=== PATIENT | female | born 1935 | race Caucasian/White ===

== ENCOUNTER 2016-02-29 11:53 | Inpatient (IN) | payer MEDICARE, MEDICAID ==
[2016-02-29] MEDS ORDERED: Albuterol Nebulizer 2.5mg/3mL HHN ONE ×3 (12:21→15:25)
[2016-02-29] MEDS ORDERED: cefTRIAXone 1 GM in Sodium Chloride 0.9% 50 ML IV ONE (12:23)
[2016-02-29] MEDS ORDERED: Azithromycin 250 MG in Sodium Chloride 0.9% 250 ML IV ONE (12:24)
[2016-02-29 13:01] LABS: ABG SOURCE Arterial; BE(B) 2.5 mmol/L (-3.0-3.0); FIO2 21; HCO3 26.3 mmol/L (20.0-26.0); pH 7.46 (7.35-7.45)
[2016-02-29 13:02] LABS: CRITICAL VALUES REPORTED BY SH
[2016-02-29 13:03] LABS: MEAN CELL VOLUME 94.2 fl (81-100); MEAN CORPUSCULAR HEMOGLOBIN 32.3 pg (27.0-31.0); MEAN CORPUSCULAR HGB CONC 34.2 pg (28.0-36.0); MEAN PLATELET VOLUME 8.1 fl; PLATELET COUNT 121 Th/cmm (150-400); RED BLOOD COUNT 3.95 Mil/cmm (3.80-5.20); RED CELL DISTRIBUTION WIDTH 14.7 % (11.5-20.0); WHITE BLOOD COUNT 6.3 Th/cmm (4.8-10.8)
[2016-02-29 13:07] LABS: HEMOGLOBIN 12.7 gm/dL (11.7-16.1)
[2016-02-29 13:08] LABS: HEMATOCRIT 37.2 % (35.0-45.0)
[2016-02-29 13:11] LABS: URINE BILIRUBIN NEGATIVE (NEGATIVE); URINE BLOOD MODERATE (NEGATIVE); URINE COLOR YELLOW; URINE GLUCOSE (UA) 500 mg/dL (NEGATIVE); URINE KETONE TRACE mg/dL (NEGATIVE); URINE PH 6.5; URINE PROTEIN >300 mg/dL (NEGATIVE)
[2016-02-29 13:12] LABS: URINE UROBILINOGEN 0.2 E.U./dL (0.2 - 1.0)
[2016-02-29 13:15] LABS: URINE BACTERIA OCCASIONAL /hpf (NONE SEEN); URINE CALCIUM OXALATE CRYSTALS FEW /hpf; URINE EPITHELIAL CELLS FEW /lpf (FEW); URINE WBC 0-2 /hpf (0-5)
[2016-02-29 13:15] LABS: INR 1.45 (0.5-1.4); PROTHROMBIN TIME (TEST) 14.8 SECONDS (9.5-11.5)
[2016-02-29 13:21] LABS: ALB/GLOB RATIO 0.8 (1.0-1.8); ALKALINE PHOSPHATASE 79 U/L (34-104); ANION GAP 11.5 (7.0-16.0); BILIRUBIN,TOTAL 0.5 mg/dL (0.3-1.0); BUN/CREATININE RATIO 67.9; CALCIUM SERUM 7.7 mg/dL (8.6-10.3); CARBON DIOXIDE 22.2 mEq/L (21.0-31.0); CHLORIDE 96 mEq/L (98-107); CHOLESTEROL 130 mg/dL (<200); CREATININE - SERUM 1.4 mg/dL (0.6-1.2); GLUCOSE 428 mg/dL (70-105); POTASSIUM SERUM 3.7 mEq/L (3.5-5.1); SGOT 80 U/L (13-39); SGPT/ALT 127 U/L (7-52); TRIGLYCERIDES 74 mg/dL (<150)
[2016-02-29 13:25] LABS: SODIUM SERUM 126 mEq/L (136-145)
[2016-02-29 13:26] LABS: BUN - UREA NITROGEN 95 mg/dL (7-25)
--- NOTE | 2016-02-29 13:36 | ED Physician Chart ---
Chief Complaint/HPI - Patient Information Date Seen:: 02/29/16 Time Seen:: 12:00 History of Present Illness:: THIS IS A 80 YO FEMALE BIB EMS FROM THE [facility] BECAUSE SHE HAS DIFFICULTY BREATHING AND IS VERY LETHARGIC. THE PATIENT ONLY RESPONDS TO DEEP PAIN STIMULUS AND IS A NO CODE THAT HAS DIFFICULTY BREATHING. SHE HAS A HISTORY OF DEMENTIA AND FAILURE TO THRIVE. Allergies:: Allergies Allergy/AdvReac Type Severity Reaction Status Date / Time No Known Allergies Allergy Verified 02/29/16 12:08 Vitals:: Vital Signs - 8 hr 02/29/16 02/29/16 11:53 12:48 Temp 101.4 F HR 101 109 RR 20 28 BP 121/53 O2 Sat % 98 95 Historian:: EMS, Medical Records Review:: Nurse's Note Reviewed, Transfer documents Reviewed, Patient unable to respond Review of Systems - Review of Systems General/Constitutional: Fever, No chills, No weight loss, No weakness, No diaphoresis, No edema, No loss of appetite Skin: No skin lesions, No rash, No bruising Head: No headache, No light-headedness Eyes: No loss of vision, No pain, No diplopia ENT: No earache, No nasal drainage, No sore throat, No tinnitus Neck: No neck pain, No swelling, No thyromegaly, No stiffness, No mass noted Cardio Vascular: No chest pain, No palpitations, No PND, No orthopnea, No edema Pulmonary: SOB, No cough, No sputum, No wheezing GI: No nausea, No vomiting, No diarrhea, No pain, No melena, No hematochezia, No constipation, No hematemesis G/U: No dysuria, No frequency, No hematuria Musculoskeletal: No bone or joint pain, No back pain, No muscle pain Endocrine: No polyuria, No polydipsia Psychiatric: No prior psych history, No depression, No anxiety, No suicidal ideation Hematopoietic: No bruising, No lymphadenopathy Allergic/Immuno: No urticaria, No angioedema Neurological: No syncope, No focal symptoms, No weakness, No paresthesia, No headache, No seizure, No dizziness, No confusion, No vertigo Past Medical History - Past Medical History Obtainable: Yes Past Medical History: HTN, DM, CAD, Asthma/COPD, CVA/TIA, Arthritis, Dementia Family History: None Social History: Non Smoker, No Alcohol, No Drug Use Surgical History: PEG/GTube Psychiatricy History: Dementia Medication: Reviewed Family Medical History - Family Member Mother History Unknown: Yes Physical Exam - Physical Examination General/Constitutional: No distress, GCS 15 Other Gen/Cons comments:: THIS IS A 80 YO WITH ONLY A RESPONSE TO DEEP PAIN STIMULUS. SHE IS CLEARLY WEAK AND DEHYDRATED. Head: Atraumatic Eyes: Lids, conjuctiva normal, PERRL, EOMI Skin: Nl inspection, No rash, No skin lesions, No ecchymosis, Well hydrated, No lymphadenopathy ENMT: External ears, nose nl, Nasal exam nl, Lips, teeth, gums nl Neck: Nontender, Full ROM w/o pain, No JVD, No nuchal rigidity, No bruit, No mass, No stridor Other Respiratory comments:: THIS PATIENT IS BREATHING WITH THE HELP OF 100% O2 AND AN AMBU BAG. BOTH LUNG HAVE DECREASE EXCURSION OF THE LUNGS. BOTH LUNGS ARE CONGESTED. Cardio Vascular: RRR (THE PATIENT IS TACHYCARDIC), No murmur, gallop, rubs, NL S1 S2 GI: No tenderness/rebounding/guarding, No organomegaly, No hernia, Normal BS's, Nondistended, No mass/bruits, No McBurney tenderness Other GI comments:: G-TUBE IS NOTED WITH GOOD FUNCTION : No CVA tenderness Extremities: No tenderness or effusion, Full ROM, normal strength in all extremities, No edema, Normal digits & nails Other Extremities comments:: ALL FOUR EXTREMITIES ARE CONTRACTED WITH SEVERE MUSCLE WASTING. Neuro/Psych: Alert/oriented, DTR's symmetric, Normal sensory exam, Normal motor strength, Judgement/insight normal, Mood normal, Normal gait, No focal deficits Other Neuro/Psych comments:: THERE IS GENERALIZE WEAKNESS Misc: normal gait, Normal back, No paraspinal tenderness Labs/Radiology/EKG Results - Lab Results Results: Laboratory Tests 02/29/16 02/29/16 02/29/16 00:50 00:50 00:50 WBC 6.3 RBC 3.95 Hgb 12.7 D Hct 37.2 D MCV 94.2 MCH 32.3 H MCHC Differential 34.2 RDW 14.7 Plt Count 121 L MPV 8.1 PT 14.8 H INR 1.45 H PTT (Actin FS) 33.6 Specimen Source Sample Site pH pCO2 pO2 HCO3 Base Excess O2 Saturation Viraj Test Vent Rate Inspired O2 Tidal Volume PEEP Pressure (ins/psv/peep) Critical Value Sodium Potassium Chloride Carbon Dioxide Anion Gap BUN Creatinine Est GFR ( Amer) Est GFR (Non-Af Amer) BUN/Creatinine Ratio Glucose Calcium Total Bilirubin AST ALT Alkaline Phosphatase Troponin I Total Protein Albumin Globulin Albumin/Globulin Ratio Triglycerides 74 Cholesterol 130 LDL Cholesterol Direct 76 HDL Cholesterol 48 Urine Source Urine Color Urine Clarity Urine pH Ur Specific Dora Urine Protein Urine Glucose (UA) Urine Ketones Urine Blood Urine Nitrate Urine Bilirubin Urine Urobilinogen Ur Leukocyte Esterase Urine RBC Urine WBC Ur Epithelial Cells Calcium Oxalate Crystal Urine Bacteria Urine Yeast 02/29/16 02/29/16 02/29/16 00:50 12: 12:25 WBC RBC Hgb Hct MCV MCH MCHC Differential RDW Plt Count MPV PT INR PTT (Actin FS) Specimen Source Arterial Sample Site RB pH 7.46 H pCO2 37.0 pO2 43.0 L* HCO3 26.3 H Base Excess 2.5 O2 Saturation 82.0 L Viraj Test NA Vent Rate NA Inspired O2 21 Tidal Volume NA PEEP NA Pressure (ins/psv/peep) NA Critical Value SH Sodium 126 L D Potassium 3.7 Chloride 96 L Carbon Dioxide 22.2 Anion Gap 11.5 BUN 95 H* Creatinine 1.4 H Est GFR ( Amer) TNP Est GFR (Non-Af Amer) TNP BUN/Creatinine Ratio 67.9 Glucose 428 H Calcium 7.7 L Total Bilirubin 0.5 AST 80 H ALT 127 H Alkaline Phosphatase 79 Troponin I Total Protein 6.3 Albumin 2.8 L Globulin 3.5 Albumin/Globulin Ratio 0.8 L Triglycerides Cholesterol LDL Cholesterol Direct HDL Cholesterol Urine Source CLEAN C Urine Color YELLOW Urine Clarity SL. CLOUDY Urine pH 6.5 Ur Specific [place] 1.020 Urine Protein >300 H Urine Glucose (UA) 500 H Urine Ketones TRACE Urine Blood MODERATE H Urine Nitrate NEGATIVE Urine Bilirubin NEGATIVE Urine Urobilinogen 0.2 Ur Leukocyte Esterase NEGATIVE Urine RBC 2-5 Urine WBC 0-2 Ur Epithelial Cells FEW Calcium Oxalate Crystal FEW Urine Bacteria OCCASIONAL Urine Yeast FEW H 02/29/16 12:50 WBC RBC Hgb Hct MCV MCH MCHC Differential RDW Plt Count MPV PT INR PTT (Actin FS) Specimen Source Sample Site pH pCO2 pO2 HCO3 Base Excess O2 Saturation Viraj Test Vent Rate Inspired O2 Tidal Volume PEEP Pressure (ins/psv/peep) Critical Value Sodium Potassium Chloride Carbon Dioxide Anion Gap BUN Creatinine Est GFR ( Amer) Est GFR (Non-Af Amer) BUN/Creatinine Ratio Glucose Calcium Total Bilirubin AST ALT Alkaline Phosphatase Troponin I 0.29 H* D Total Protein Albumin Globulin Albumin/Globulin Ratio Triglycerides Cholesterol LDL Cholesterol Direct HDL Cholesterol Urine Source Urine Color Urine Clarity Urine pH Ur Specific [place]ora Urine Protein Urine Glucose (UA) Urine Ketones Urine Blood Urine Nitrate Urine Bilirubin Urine Urobilinogen Ur Leukocyte Esterase Urine RBC Urine WBC Ur Epithelial Cells Calcium Oxalate Crystal Urine Bacteria Urine Yeast - Radiology Results Results: BILATERAL INFILTRATES NOTED ON CHEST X-RAY - EKG Interpretations EKG Time:: 12:53 Rhythm: ATIAL FIBRILLATION [place]: LEFT Rate: 100 ED Septic Shock - . Is Septic Shock (SBP<90, OR Lactate>4 mmol\L) present?: No - <6hrs of presentation: Vital Signs: Vital Signs - 8 hr 02/29/16 02/29/16 11:53 12:48 Temp 101.4 F HR 101 109 RR 20 28 BP 121/53 O2 Sat % 98 95 Reassessment (Disposition) - Reassessment Reassessment Condition:: Improved - Diagnosis Diagnosis:: PNEUMONIA SEVERE DEHYDRATION
[2016-02-29 13:40] LABS: BAND NEUTROPHILE 17 % (0-10); NEUTROPHILS 59 % (40-80); PLATELET ESTIMATE DECREASED PLATELETS (NORMAL); TOTAL CELLS COUNTED 100
[2016-02-29 13:41] LABS: PLATELET MORPHOLOGY NORMAL (NORMAL)
--- NOTE | 2016-02-29 15:23 | Diagnostic Imaging Report ---
Portable chest x-ray HISTORY: Shortness of breath Compared with the prior exam of 01/27/2016, the heart is enlarged. There is accentuation of the lower interstitial lung markings. A degree of congestive heart failure cannot be excluded. No pleural fluid. No hilar or mediastinal abnormalities. IMPRESSION: 1. Cardiomegaly along with accentuation of the lower interstitial lung markings. A mild degree of congestive heart failure cannot be excluded. No definite focal processes.
[2016-02-29] MEDS ORDERED: D5-0.9%NS 1,000 ML IV SCH (16:00)
[2016-02-29] MEDS ORDERED: Albuterol/Ipratropium Neb 3 ML AERS HHN PRN (16:47)
[2016-02-29] MEDS ORDERED: Hydrocodone/APAP 5mg/325mg Tab PO PRN (16:47)
[2016-02-29] MEDS ORDERED: Budesonide 0.5 Mg/2 mL Ud HHN PRN (16:47)
[2016-02-29] MEDS: Albuterol/Ipratropium Neb 3 ML AERS HHN SCH ×2 (20:26→23:24)
[2016-02-29] MEDS: Budesonide 0.5 Mg/2 mL Ud HHN SCH (20:26)
--- NOTE | 2016-02-29 23:17 | Admit Criteria Form ---
Admit Criteria Forms - Admit Criteria Diagnosis: PNEUMONIA, COMMUNITY ACQUIRED Clinical Indications for Admission to Inpatient Care ( Place 'X' for any and all applicable criteria): Admission is indicated for ANY ONE of the following (1)(2)(3): [ ]I. Hypoxemia indicated by ANY ONE of the following: [ ]a) Oxygen saturation less than 90% while breathing room air [ ]b) PO2 less than 60 mm Hg (8.0 kPa) while breathing room air [ ]c) Chronic lung disease with significant deterioration from baseline oxygenation [ ]II. Appropriate diagnostic testing and treatment unavailable in outpatient or recovery facility (eg,testing or infection control measures unavailable(10) [X ]III. Moderate-risk or high-risk category patients (Pneumonia Severity Index (PSI) class IV or V, or CURB-65 score of 3 or greater). [ ]IV. Outpatient treatment failure as indicated by ANY ONE of the following(9) : [ ]a) Failure to respond to antibiotic (eg, resistant organism) [ ]b) Clinically significant adverse effects from medication (eg, vomiting) [ ]c) Complications of pneumonia (eg, empyema, bacteremia) [ ]d) Significant worsening of comorbid cond necessitating inpatient care (eg, chronic heart failure) [ ]V. Intermediate-risk category patients (eg, PSI class III or CURB-65 score 2) who do not improve with initial therapy and observation. [ ]. Immunocompromised patients (eg, AIDS, chronic steroid use) at moderate or high risk based on clinical evaluation. [ ]VII. Complicated pleural effusions (eg, exudative, loculated) [ ]VIII.Hemodynamic instability [ ] IX. Altered mental status that is severe or persistent. [ ]X. Dehydration that is severe or persistent. [ ]XI. Bacteremia [ ]XII. Respiratory finding (eg. tachypnea) that do not respond to outpatient or observation care treatment Extended stay beyond goal length of stay may be needed for (20) [ ]a) Unclear diagnosis [ ]b) Pleural disease [ ]c) Severe pneumonia or treatment failure (25 [ ]d) Respiratory failure (anticipate invasive or noninvasive ventilatory support) [ ]e) Abnormal serum electrolytes (serum Na concentration less than 135 mEq/L (mmol/L) (32)(33) [ ]f) Clinically significant comorbid illness (eg, heart failure, atrial fibrillation with rapid heart rate, alcohol withdrawal, renal insufficiency)(34)(35) [ ]g) Comorbid acute exacerbation of COPD(36) [ ]h) Concomitant diagnosis of malignancy that may be associated with malnutrition, immunologic impairment, or bronchial obstruction. [ ]i) Concomitant altered mental status [ ]j) Culture-identified Gram-negative or antibiotic-resistant organism (eg, Pseudomonas, methicillin-resistant Staphylococcus aureus)(30) [ ]k) Healthcare-associated pneumonia The original [facility] content created by [email or web address] has been revised. The portions of the content which have been revised are identified through the use of italic text or in bold, and [facility] has neither reviewed nor approved the modified material. All other unmodified content is copyright [facility]. Please see references footnoted in the original [facility] [employer] edition 2016 Admit Criteria Met?: Yes
[2016-03-01] MEDS: Albuterol/Ipratropium Neb 3 ML AERS HHN SCH ×6 (03:09→23:14)
[2016-03-01] MEDS: carBAMazepine 200 mg/10 mL UDC GT SCH ×2 (04:54→17:40)
[2016-03-01 05:23] LABS: HEMATOCRIT 34.2 % (35.0-45.0); HEMOGLOBIN 11.8 gm/dL (11.7-16.1); MEAN CELL VOLUME 94.1 fl (81-100); MEAN CORPUSCULAR HEMOGLOBIN 32.5 pg (27.0-31.0); MEAN CORPUSCULAR HGB CONC 34.5 pg (28.0-36.0); MEAN PLATELET VOLUME 8.8 fl; RED BLOOD COUNT 3.64 Mil/cmm (3.80-5.20); RED CELL DISTRIBUTION WIDTH 15.3 % (11.5-20.0); WHITE BLOOD COUNT 7.3 Th/cmm (4.8-10.8)
[2016-03-01 05:29] LABS: ALB/GLOB RATIO 0.8 (1.0-1.8); ALKALINE PHOSPHATASE 68 U/L (34-104); ANION GAP 15.1 (7.0-16.0); BILIRUBIN,TOTAL 0.5 mg/dL (0.3-1.0); BUN/CREATININE RATIO 62.2; CALCIUM SERUM 7.3 mg/dL (8.6-10.3); CARBON DIOXIDE 22.2 mEq/L (21.0-31.0); CHLORIDE 93 mEq/L (98-107); CREATININE - SERUM 1.8 mg/dL (0.6-1.2); POTASSIUM SERUM 4.3 mEq/L (3.5-5.1); SGOT 77 U/L (13-39); SGPT/ALT 130 U/L (7-52); SODIUM SERUM 126 mEq/L (136-145)
[2016-03-01 05:41] LABS: BUN - UREA NITROGEN 112 mg/dL (7-25); GLUCOSE 663 mg/dL (70-105)
[2016-03-01] MEDS ORDERED: INSULIN ASPART, RECOMBINANT 100 UNITS/ML SUBQ ONE (06:54)
[2016-03-01] MEDS: Budesonide 0.5 Mg/2 mL Ud HHN SCH ×2 (07:49→20:09)
[2016-03-01 08:04] LABS: PLATELET COUNT 100 Th/cmm (150-400)
[2016-03-01 08:07] LABS: BAND NEUTROPHILE 25 % (0-10); METAMYELOCYTE 1 % (0-0); NEUTROPHILS 58 % (40-80); TOTAL CELLS COUNTED 100
[2016-03-01 08:08] LABS: PLATELET ESTIMATE DECREASED PLATELETS (NORMAL); PLATELET MORPHOLOGY GIANT PLATELETS SEEN (NORMAL)
[2016-03-01] MEDS ORDERED: Pantoprazole 40 mg/Packet GT SCH (09:00)
[2016-03-01] MEDS ORDERED: LANSOPRAZOLE 30 MG GT SCH (09:00)
[2016-03-01] MEDS ORDERED: Azithromycin 250 MG in Sodium Chloride 0.9% 250 ML IV SCH (10:00)
--- NOTE | 2016-03-01 10:18 | Infectious Disease Prog Note ---
Infectious Disease Subjective - Review of Systems Service Date: 03/01/16 Subjective: [id number] Infectious Disease Objective - Results Result Diagrams: 03/01/16 05:05 03/01/16 05:05 Recent Labs: Laboratory Last Values WBC 7.3 Th/cmm (4.8-10.8) 03/01/16 05:05 RBC 3.64 Mil/cmm (3.80-5.20) L 03/01/16 05:05 Hgb 11.8 gm/dL (11.7-16.1) 03/01/16 05:05 Hct 34.2 % (35.0-45.0) L 03/01/16 05:05 MCV 94.1 fl (81-100) 03/01/16 05:05 MCH 32.5 pg (27.0-31.0) H 03/01/16 05:05 MCHC Differential 34.5 pg (28.0-36.0) 03/01/16 05:05 RDW 15.3 % (11.5-20.0) 03/01/16 05:05 Plt Count 100 Th/cmm (150-400) L 03/01/16 05:05 MPV 8.8 fl 03/01/16 05:05 Band Neutrophils % 25 % (0-10) H 03/01/16 05:05 Neutrophils (Manual) 58 % (40-80) 03/01/16 05:05 Lymphocytes 9 % (20-50) L 03/01/16 05:05 Monocytes 7 % (2-10) 03/01/16 05:05 Eosinophils Not Reportable 03/01/16 05:05 Metamyelocytes 1 % (0-0) H 03/01/16 05:05 Platelet Estimate DECREASED PLATELETS (NORMAL) 03/01/16 05:05 Platelet Morphology GIANT PLATELETS SEEN (NORMAL) 03/01/16 05:05 RBC Morph Micro Appear NORMAL (NORMAL) 03/01/16 05:05 PT 14.8 SECONDS (9.5-11.5) H 02/29/16 00:50 INR 1.45 (0.5-1.4) H 02/29/16 00:50 PTT (Actin FS) 33.6 SECONDS (26.0-38.0) 02/29/16 00:50 Specimen Source Arterial 02/29/16 12:09 Sample Site RB 02/29/16 12:09 pH 7.46 (7.35-7.45) H 02/29/16 12:09 pCO2 37.0 mmHg (35.0-45.0) 02/29/16 12:09 pO2 43.0 mmHg (80.0-100.0) L* 02/29/16 12:09 HCO3 26.3 mmol/L (20.0-26.0) H 02/29/16 12:09 Base Excess 2.5 mmol/L (-3.0-3.0) 02/29/16 12:09 O2 Saturation 82.0 % (92.0-100.0) L 02/29/16 12:09 Viraj Test NA 02/29/16 12:09 Vent Rate NA 02/29/16 12:09 Inspired O2 21 02/29/16 12:09 Tidal Volume NA 02/29/16 12:09 PEEP NA 02/29/16 12:09 Pressure (ins/psv/peep) NA 02/29/16 12:09 Critical Value SH 02/29/16 12:09 Sodium 126 mEq/L (136-145) L 03/01/16 05:05 Potassium 4.3 mEq/L (3.5-5.1) 03/01/16 05:05 Chloride 93 mEq/L (98-107) L 03/01/16 05:05 Carbon Dioxide 22.2 mEq/L (21.0-31.0) 03/01/16 05:05 Anion Gap 15.1 (7.0-16.0) 03/01/16 05:05 BUN 112 mg/dL (7-25) H* 03/01/16 05:05 Creatinine 1.8 mg/dL (0.6-1.2) H 03/01/16 05:05 Est GFR ( Amer) TNP 03/01/16 05:05 Est GFR (Non-Af Amer) TNP 03/01/16 05:05 BUN/Creatinine Ratio 62.2 03/01/16 05:05 Glucose 663 mg/dL (70-105) H* 03/01/16 05:05 Hemoglobin A1c % 6.1 % (4.0-6.0) H 02/29/16 12:50 Calcium 7.3 mg/dL (8.6-10.3) L 03/01/16 05:05 Total Bilirubin 0.5 mg/dL (0.3-1.0) 03/01/16 05:05 AST 77 U/L (13-39) H 03/01/16 05:05 ALT 130 U/L (7-52) H 03/01/16 05:05 Alkaline Phosphatase 68 U/L (34-104) 03/01/16 05:05 Troponin I 0.29 ng/mL (0.01-0.05) H* D 02/29/16 12:50 Total Protein 6.3 gm/dL (6.0-8.3) 03/01/16 05:05 Albumin 2.7 gm/dL (3.7-5.3) L 03/01/16 05:05 Globulin 3.6 gm/dL 03/01/16 05:05 Albumin/Globulin Ratio 0.8 (1.0-1.8) L 03/01/16 05:05 Triglycerides 74 mg/dL (<150) 02/29/16 00:50 Cholesterol 130 mg/dL (<200) 02/29/16 00:50 LDL Cholesterol Direct 76 mg/dL (75-193) 02/29/16 00:50 HDL Cholesterol 48 mg/dL (23-92) 02/29/16 00:50 Urine Source CLEAN C 02/29/16 12:25 Urine Color YELLOW 02/29/16 12:25 Urine Clarity SL. CLOUDY (CLEAR) 02/29/16 12:25 Urine pH 6.5 02/29/16 12:25 Ur Specific [place] 1.020 (1.005-1.030) 02/29/16 12:25 Urine Protein >300 mg/dL (NEGATIVE) H 02/29/16 12:25 Urine Glucose (UA) 500 mg/dL (NEGATIVE) H 02/29/16 12:25 Urine Ketones TRACE mg/dL (NEGATIVE) 02/29/16 12:25 Urine Blood MODERATE (NEGATIVE) H 02/29/16 12:25 Urine Nitrate NEGATIVE (NEGATIVE) 02/29/16 12:25 Urine Bilirubin NEGATIVE (NEGATIVE) 02/29/16 12:25 Urine Urobilinogen 0.2 E.U./dL (0.2 - 1.0) 02/29/16 12:25 Ur Leukocyte Esterase NEGATIVE (NEGATIVE) 02/29/16 12:25 Urine RBC 2-5 /hpf (0-5) 02/29/16 12:25 Urine WBC 0-2 /hpf (0-5) 02/29/16 12:25 Ur Epithelial Cells FEW /lpf (FEW) 02/29/16 12:25 Calcium Oxalate Crystal FEW /hpf 02/29/16 12:25 Urine Bacteria OCCASIONAL /hpf (NONE SEEN) 02/29/16 12:25 Urine Yeast FEW /hpf (NONE SEEN) H 02/29/16 12:25 RPR NONREACTIVE (NONREACTIVE) 02/29/16 00:50 - Physical Exam Vitals and I&O: Vital Signs Temp 98.8 F 03/01/16 08:00 Pulse 96 03/01/16 08:00 Resp 20 03/01/16 08:00 BP 117/61 03/01/16 08:00 Pulse Ox 100 03/01/16 08:00 Intake & Output 02/29/16 03/01/16 03/01/16 18:59 06:59 18:59 Intake Total 200 Output Total 750 Balance -550 Intake: Oral 0 Tube Feeding 200 Output: Gastric Drainage 250 Urine 500 Active Medications: Current Medications Acetaminophen (Tylenol 650mg/20.3ml Suspension) 650 mg GT Q4H PRN PRN Reason: Pain Or Fever >100 Stop: 04/29/16 16:46 Last Admin: 03/01/16 03:26 Dose: 650 mg Acetaminophen/Hydrocodone Bitart ([place] 5mg/325mg) 1 tab PO Q4H PRN PRN Reason: moderate pain Stop: 04/29/16 16:46 Albuterol/Ipratropium (Duoneb Neb) 3 ml HHN Q4H PRN PRN Reason: Shortness of Breath Stop: 04/29/16 16:46 Albuterol/Ipratropium (Duoneb Neb) 3 ml HHN Q4HRT ARACELY Stop: 04/29/16 18:59 Last Admin: 03/01/16 07:49 Dose: 3 ml Budesonide (Pulmicort) 0.5 mg HHN Q12HRT ARACELY Stop: 04/29/16 18:59 Last Admin: 03/01/16 07:49 Dose: 0.5 mg Budesonide (Pulmicort) 0.5 mg HHN Q4H PRN PRN Reason: sob Stop: 04/29/16 16:46 Carbamazepine (Tegretol) 200 mg GT Q12H ARACELY PRN Reason: Protocol Stop: 04/29/16 16:59 Last Admin: 03/01/16 04:54 Dose: 200 mg Heparin Sodium (Porcine) (Heparin) 5,000 units SUBQ Q12HR ARACELY Stop: 04/29/16 20:59 Last Admin: 03/01/16 09:32 Dose: 5,000 units Potassium Chloride 10 meq/ (Sodium Chloride) 1,005 mls @ 50 mls/hr IV .Q20H6M ARACELY Stop: 04/30/16 08:14 Piperacillin Sod/Tazobactam (Sod 3.375 gm/ Sodium Chloride) 50 mls @ 100 mls/ hr IV Q6H ARACELY Stop: 04/30/16 08:59 Vancomycin HCl 1 gm/ Sodium (Chloride) 250 mls @ 165 mls/hr IV ONCE ONE Stop: 03/01/16 10:30 Insulin Aspart (Novolog Insulin Sliding Scale) 0 units SUBQ Q6HR ARACELY PRN Reason: Protocol Stop: 04/30/16 11:59 Miscellaneous (Vancomycin Iv Per Pharmacy) 1 ea PRN PRN PRN Reason: PROTOCOL Stop: 04/30/16 08:11 Miscellaneous (Zosyn Iv Per Pharmacy) 1 ea PRN PRN PRN Reason: PROTOCOL Stop: 04/30/16 08:11 Pantoprazole Sodium (Protonix) [address] [facility] Stop: 04/30/16 08:59 Last Admin: 03/01/16 09:32 Dose: 40 mg - Procedures Procedures: Procedures Procedure Code Date ASSISTANCE WITH RESPIRATORY VENTILATION, 24-96 HRS, CPAP [id number] 01/24/16 BLOOD TRANSFUSION SERVICE 05243 08/10/07 COLONOSCOPY 45.23 08/10/07 DIAGNOSTIC COLONOSCOPY 80054 08/10/07 EGD BIOPSY SINGLE/MULTIPLE 98698 08/10/[address] GASTROSTOMY TUBE 37200 06/29/15 ESOPHAGOGASTRODUODENOSCOPY [EGD] W/CLOSED BIOPSY 45.16 08/10/07 IMMOBILIZ/WOUND ATTN NEC 93.59 04/19/08 INSERTION OF FEEDING DEVICE INTO STOMACH, PERC APPROACH [id number] 06/29/15 INSERTION OF INFUSION DEV INTO SUP VENA CAVA, PERC APPROACH [id number] 12/11/15 PACKED CELL TRANSFUSION 99.04 03/25/14 STRAPPING OF SHOULDER 82059 04/19/08 ULTRASONOGRAPHY OF SUPERIOR VENA CAVA, GUIDANCE [id number] 12/11/15 VACCINATION NEC 99.55 03/20/13 VENOUS CATHETERIZATION NEC 38.93 03/25/14 Infectious Disease Assmt/Plan - Problem List Patient Problems: All Active Problems Generalized weakness (Acute) PIC line (peripherally inserted central catheter) removal (Acute) Z45.2 WEAKNESS WITH CONGESTION (Acute 01/09/15)
--- NOTE | 2016-03-01 10:33 | History & Physical ---
CHIEF COMPLAINT: Shortness of breath. HISTORY OF PRESENT ILLNESS: This is a 80-year-old female who [facility] ER for increased shortness of breath and [facility]arg[facility]. The patient has a previous history of pneumonia along with UTI. She also has a history of decubitus ulcers to both feet. She also has G-tube feeding, history of dementia, seizure disorder, gastroesophageal reflux disease, hyperlipidemia, and hypothyroidism. The patient presents to the ER with initial lab work. CBC: white count was 6.3, hemoglobin 12.7, hematocrit 37.2, platelets 121. Chem-7: Sodium was noted to be low at 126, potassium 3.7, chloride 96, bicarbonate 22, BUN elevated at 95, creatinine 1.4. Glucose was elevated at 428. Also liver enzymes are elevated, AST 80, ALT 127, alkaline phosphatase 79. UA revealed yellow cloudy urine with moderate blood and few yeast present in the urine. REVIEW OF SYSTEMS: Unable to obtain due to the patient's current condition. FAMILY HISTORY: Noncontributory. ALLERGIES: No known drug allergies. PAST MEDICAL HISTORY: See HPI. SOCIAL HISTORY: The [facility] a [facility] a [facility] facility. PHYSICAL EXAMINATION: VITAL SIGNS: Temperature 102.8, pulse 90, respirations 19, blood pressure 112/61. GENERAL: This is a 80-year-old female, well developed, well nourished, appears her stated age. HEENT: Normocephalic, atraumatic. Pupils equal, round, reactive to light and accommodation. Extraocular muscles intact. NECK: Supple. Full range of motion. No thyromegaly, no lymphadenopathy. CARDIOVASCULAR: Regular rate and rhythm, no murmurs, rubs or clicks. LUNGS: Decreased breath sounds noted at the bases. ABDOMEN: Soft, nontender, nondistended. Bowel sounds are active in all 4 quadrants. No rebound tenderness or rigidity. No guarding. EXTREMITIES: Bilateral ulcers noted. ASSESSMENT: 1. Pneumonia. 2. Sepsis. 3. Urinary tract infection. 4. Decubitus bilaterally to the lower extremities. 5. G-tube feeding. 6. Senile dementia. 7. Seizure disorder. 8. Gastroesophageal reflux disease. 9. Hyperlipidemia. 10. Hypothyroidism. PLAN: We will start the patient on vancomycin per Pharmacy and Zosyn per Pharmacy. We will order an ID consult with Dr. Nandini Richardson. We will order a chest x-ray in the next couple of days. Urine cultures, blood cultures ordered through the ER. We will also order Pulmonary consult with Dr. Addison Richardson and also we will continue home medications for this patient, Accu-Cheks q. 6 hours and on a moderate sliding scale. JOB# [id number]
[2016-03-01] MEDS ORDERED: INSULIN ASPART SLIDING SCALE 100 UNITS/ML UNIT SUBQ SCH (12:00)
[2016-03-01] MEDS ORDERED: Sodium Chloride 0.9% 1,000 ML IV ONE (17:10)
[2016-03-01] MEDS: INSULIN ASPART SLIDING SCALE 100 UNITS/ML UNIT SUBQ SCH (17:41)
[2016-03-01] MEDS ORDERED: Albuterol/Ipratropium Neb 3 ML AERS HHN SCH (19:00)
[2016-03-01] MEDS ORDERED: Budesonide 0.5 Mg/2 mL Ud HHN SCH (19:00)
[2016-03-01] MEDS ORDERED: SODIUM BICARBONATE HHN SCH (22:00)
--- NOTE | 2016-03-02 00:17 | Consultation ---
INFECTIOUS DISEASE CONSULTATION REFERRING PHYSICIAN: Dr. Soliz. REASON FOR CONSULTATION: Pneumonia. HISTORY OF PRESENT ILLNESS: The patient is a 80-year-old female with a past medical history of hypertension, diabetes mellitus type 2, coronary artery disease, asthma, COPD, CVA, TIA, and dementia, who was brought in from shelter for worsening of breathing and generalized weakness with lethargy. On initial evaluation, her temperature was 101.4 degrees Fahrenheit and WBC count was 6300 with 17% bands. Chest x-ray showed cardiomegaly with lower interstitial lung markings, CHF. The patient was suspected to have pneumonia, so the patient was started on vancomycin and Zosyn, and ID consult was called for further antibiotic management. PAST MEDICAL HISTORY: As mentioned above, diabetes mellitus type 2, hypertension, coronary artery disease, COPD, asthma, CHF, CVA, TIA, arthritis, and dementia. FAMILY HISTORY: Noncontributory. SOCIAL HISTORY: Denies any smoking. There is no history of smoking, alcohol, or drug use. PAST SURGICAL HISTORY: G-tube placement. PSYCHIATRIC HISTORY: Dementia. MEDICATIONS: As per medication reconciliation sheet. Antibiotic peters, the patient is on vancomycin and Zosyn. FAMILY HISTORY: Not available. REVIEW OF SYSTEMS: The patient is unable to give any history, but the patient had fever with shortness of breath. PHYSICAL EXAMINATION: VITAL SIGNS: Shows temperature is 98.8 degrees Fahrenheit, T-max is 102.8 degree Fahrenheit, pulse is 79, respiration is 20, and blood pressure 117/61. GENERAL: The patient is comfortable lying in the bed, not in acute distress. HEENT: Head is normocephalic and atraumatic. Oral cavity moist. [place] tongue. Eyes: Pallor is present. NECK: Supple. No JVD. No carotid bruit. Trachea in midline. CHEST: Bilateral bronchovesicular breath sounds. Crackles present. HEART: S1, S2 within normal limits. Regular rhythm. No murmur, no gallop. ABDOMEN: Soft, nontender, and nondistended. Bowel sounds present. EXTREMITIES: No cyanosis, no clubbing, and no edema. NEUROLOGIC: Able to open eyes only. Unable to interact. LABORATORY DATA: Current lab shows WBC count is 7300, hemoglobin 11.8, hematocrit 34.2, platelets are 100,000, and neutrophils 58%, bands are 25%. Sodium is 126, potassium 4.3, chloride 93, bicarb is 22, BUN is 112, creatinine 1.8, and glucose is 663. RPR nonreactive. IMPRESSION: 1. Sepsis. 2. Pneumonia. 3. Diabetes mellitus type 2. 4. Hypertension. 5. Coronary artery disease. 6. Chronic obstructive pulmonary disease. 7. Asthma. 8. Acute renal failure versus chronic kidney disease. 9. Dementia. 10. History of cerebrovascular accident. RECOMMENDATIONS: We will continue antibiotic vancomycin and Zosyn. Check lactic acid. Follow up the sepsis workup. Thank you Dr. Soliz for involving me taking care of this patient. JOB# [id number] [place]
[2016-03-02] MEDS: INSULIN ASPART SLIDING SCALE 100 UNITS/ML UNIT SUBQ SCH ×2 (00:48→05:37)
--- NOTE | 2016-03-02 02:59 | Consultation ---
PULMONARY CONSULTATION NOTE REASON FOR CONSULTATION: Acute bronchitis with possibly pneumonia. CONSULT NOTE: This is a 80-year-old female of Dr. Soliz who has been in a convalescent home with significant ___ condition including history of dementia, history of gastroesophageal reflux, history of hypothyroidism, history of seizure disorder, and the patient has been having acute on chronic shortness of breath for last few days. As the patient felt quite congested and shortness of breath and appears to have possibly more labile mental condition, the patient was admitted. Unfortunately, the patient is still quite obtunded. Meaningful detailed history from the patient is not available. PAST MEDICAL HISTORY: History of dysphagia, aphasia, history of hypertension, dyslipoproteinemia, hypothyroidism, dementia, but otherwise unremarkable and has been totally bedridden patient. Other history in the past is very limited at this particular time. FAMILY HISTORY: Not contributory. ALLERGIC HISTORY: Nil. PHYSICAL EXAMINATION: GENERAL: This is an elderly looking female, barely opens eyes, has stiffness on the right upper and lower extremities. Tongue is protruding on the left side. VITAL SIGNS: The patient's recorded vitals: Temperature is 98.8 to 100.6, respirations in low 20s, saturation 100% on 2 liters of oxygen. HEENT: Examination of the head is essentially unremarkable. Pupils appear to be equal and reacting to light. Conjunctivae are slightly pallor. Oral cavity appears to be edentulous with small oropharyngeal opening. NECK: No nodes in the neck could be palpated. CHEST: Shows lot of scattered rales and rhonchi bilaterally with generalized diminished air entry. HEART: Tachycardic mildly, 100-110. ABDOMEN: Shows G-tube, otherwise unremarkable. EXTREMITIES: Show contractures and flexion with some bony area decubitus ulceration. The patient's chest x-ray shows some interstitial infiltrate in right basal area, questionable on the left side as well. The patient's WBC is 7.3, hemoglobin is 11.8 and ABG done yesterday ____ room air pO2 is 43. Sodium is 126, BUN is 112, creatinine is 1.8 and sugar is ____ and calcium is 7.3. ASSESSMENT: 1. The patient has early pneumonitis on the right base with some on the left side. Etiology is not clear, possibility of gastric aspiration and/or salivary aspiration. 2. Dehydration with prerenal azotemia with severe hyperglycemia, contributory factor with dehydration contributory factor to current issues. PLANS AND SUGGESTIONS: We will continue antibiotic per ID. We will give aggressive respiratory care, hydrate the patient, and we will repeat another blood gases and chest x-ray in next 24-48 hours and go from there, and I will be glad to follow along with you. JOB# [id number]
[2016-03-02] MEDS: Albuterol/Ipratropium Neb 3 ML AERS HHN SCH ×2 (03:01→07:11)
--- NOTE | 2016-03-02 03:43 | Consultation ---
RENAL CONSULTATION NOTE HISTORY OF PRESENT ILLNESS: This is a 80-year-old female patient who was brought in from [facility] to [facility] with increasing shortness of breath and marked lethargy from the longterm. Prior to that, this patient had a previous history of pneumonia along with the urinary tract infection. She had also multiple areas of decubiti of both lower extremities with evidence of flexion contracture with severe degree and inactivity and bedridden, had a G-tube in place, history of dementia, seizure disorder, gastroesophageal reflux, hyperlipidemia, and past history of hypothyroidism. On ER evaluation, the patient was noted to have some degree of azotemia. BUN was more than 100, creatinine of 1.8. The patient's blood sugar is significantly elevated to level of 428, although the most recent blood sugars I noted today is 663. REVIEW OF SYSTEMS: Unobtainable for this patient. PHYSICAL EXAMINATION: GENERAL: She is unresponsive. She does not open her eyes to stimulation. She moans, but no evidence of response at the present time. She is nonverbal. She does not communicate. VITAL SIGNS: Temperature is 98.6, prior to this was 100.6. Blood pressure 97/52 with respiratory rate of 20. O2 sat is 95%. CHEST: Clear to auscultation. ABDOMEN: Shows presence of a G-tube. The entry of the G-tube is clear. No evidence of infection. There is no edema in the dependent portion of the body. EXTREMITIES: Flexion contracture of both lower extremities and decubitus ulceration is noted on both lower extremities. LAB STUDIES: Reviewed. 7300 white blood cell count, 11.8 hemoglobin, hematocrit of 34.3, platelet counts 100,000. Arterial blood gas, 7.46, pO2 of 37, and pCO2 of 48. This is at room air. Electrolytes: 126 sodium, potassium 4.3, chlorides 93, CO2 of 22, BUN of 112, creatinine of 1.8, glucose is 663 and prior to this was 423. Glucose determination of the 663 is 521. Lactic acid 3.1, calcium 7.3, AST 77, ALT 130, alkaline phosphatase 68, troponin is 0.29, total protein 6.3, albumin 2.7. Urinalysis; cloudy urine, 300 protein, moderate amounts of blood, occasional bacteria, negative for urine leukocyte esterase. X-rays are reviewed. She had chest x-ray on admission on 02/29/2016 showing cardiomegaly with accentuation of lower interstitial lung marking. Mild degree of congestive heart failure cannot exclude no definite ____ process. DIAGNOSTIC IMPRESSION: 1. Prerenal azotemia likely secondary to dehydration. Note that this patient came in with significant degree of hyperglycemia which may have precipitated significant degree of diuresis in this patient and incidental finding of hypovolemia. 2. Hypertension likely related to Gram positive cocci septicemia and associated dehydration that this patient has. 3. Hypoxemia in this patient at O2 sat of 43 in the presence of 21% oxygen. She will need supplementation of oxygen at the present time. 4. History of Alzheimer. 5. History of flexion contracture, chronic. PLAN: 1. At the present time, change IV fluid with this patient to normal saline. 2. Increase IV fluids in the form of normal saline especially with this patient having some degree of hyponatremia likely related to significant degree of hyperglycemia on this patient. We will follow this patient. Antibiotic therapy has been reviewed. This patient is currently on vancomycin and Zosyn. PROGNOSIS: Poor. JOB# [id number]
[2016-03-02] MEDS: carBAMazepine 200 mg/10 mL UDC GT SCH (04:38)
[2016-03-02] MEDS: Budesonide 0.5 Mg/2 mL Ud HHN SCH (07:11)
[2016-03-02 07:43] LABS: HEMATOCRIT 32.9 % (35.0-45.0); HEMOGLOBIN 11.2 gm/dL (11.7-16.1); MEAN CELL VOLUME 94.8 fl (81-100); MEAN CORPUSCULAR HEMOGLOBIN 32.2 pg (27.0-31.0); MEAN PLATELET VOLUME 9.1 fl; PLATELET COUNT 96 Th/cmm (150-400); RED BLOOD COUNT 3.47 Mil/cmm (3.80-5.20)
[2016-03-02 08:00] LABS: WHITE BLOOD COUNT 10.6 Th/cmm (4.8-10.8)
[2016-03-02 08:43] LABS: BAND NEUTROPHILE 18 % (0-10); NEUTROPHILS 68 % (40-80); PLATELET ESTIMATE DECREASED PLATELETS (NORMAL); PLATELET MORPHOLOGY NORMAL (NORMAL); TOTAL CELLS COUNTED 100
[2016-03-02 08:45] LABS: ALB/GLOB RATIO 0.7 (1.0-1.8); ALKALINE PHOSPHATASE 59 U/L (34-104); ANION GAP 15.7 (7.0-16.0); BILIRUBIN,TOTAL 0.6 mg/dL (0.3-1.0); CARBON DIOXIDE 20.5 mEq/L (21.0-31.0); CHLORIDE 100 mEq/L (98-107); CREATININE - SERUM 2.6 mg/dL (0.6-1.2); GLUCOSE 106 mg/dL (70-105); POTASSIUM SERUM 5.2 mEq/L (3.5-5.1); SGOT 151 U/L (13-39); SGPT/ALT 174 U/L (7-52); SODIUM SERUM 131 mEq/L (136-145)
[2016-03-02 08:59] LABS: TSH 5.69 uIU/ml (0.34-5.60)
[2016-03-02 09:04] LABS: BUN - UREA NITROGEN 130 mg/dL (7-25)
[2016-03-02 09:58] LABS: pH 6.87 (7.35-7.45)
[2016-03-02 09:59] LABS: ABG SOURCE Arterial; BE(B) -11.9 mmol/L (-3.0-3.0); FIO2 100; HCO3 23.9 mmol/L (20.0-26.0)
--- NOTE | 2016-03-02 10:24 | Diagnostic Imaging Report ---
CHEST X-RAY: AP view INDICATION: Pneumonia COMPARISON: Chest x-ray 02/29/2016 FINDINGS: There has been interval development of multifocal patchy infiltrates. Low Lung volumes are noted. Heart size is borderline prominent. IMPRESSION: Interval development of multifocal patchy infiltrates. Follow-up is recommended.
--- NOTE | 2016-03-02 17:09 | Consultation ---
REFERRING PHYSICIAN: Colin Soliz D.O. REASON FOR CONSULTATION: Decubitus ulcer, both feet. Thank you for referring this patient to me. HISTORY OF PRESENT ILLNESS: This is a 80-year-old female from residential, was brought in because of shortness of breath. PAST MEDICAL HISTORY: Includes UTI, decubitus ulcer in both feet, the duration is not exactly known, G-tube feeding, history of dementia, seizure disorder, GE reflux, hyperlipidemia and hypothyroidism. LABORATORY STUDIES: Show WBC is normal, hemoglobin 12.7, bands is high at 17%. The chemistry, lactic acid was extremely high at 3.21 with blood sugar at 521. The PT is slightly elevated at 14.8. Chest x-ray showed cardiomegaly with accentuation of the lower interstitial lung markings consistent with congestive heart failure. The patient has been seen in consultation by Dr. Nandini Richardson, customer experience retail clerk, Dr. Aden Richardson Infectious Disease and Dr. Perez Frank, Nephrology. PHYSICAL EXAMINATION: The patient unable to respond verbally to questions. Significant findings are ulcers in both heels worse on the left side. This involves an area about 8 cm wide black skin with some drainage and likely stage III ulcer. On the right side, there is more superficial ____ heel and a blister on the lateral aspect of the ankle. When the patient is medically as he is hypotensive, we will debride with the consent by the family. I will follow with you. JOB# [id number]
--- NOTE | 2016-03-03 05:38 | Progress Notes ---
PROBLEM LIST: 1. Acute respiratory failure. 2. Severe hypercarbia with hypoxemia with a tracheobronchitis. SYMPTOMS: The patient has periods of agonal breathing, becoming hypotensive and ____ and quite dusky looking color. PHYSICAL EXAMINATION: VITAL SIGNS: The patient initially blood pressure was 80/38, temperature is 98, saturation 100% on BiPAP. NECK: Veins could not be visualized. CHEST: Shows scattered rhonchi with diminished air entry. HEART: Regular. ABDOMEN: Soft, nontender. ABG shows severe respiratory acidemia with moderate hypoxemia with ____. PLANS AND SUGGESTIONS: We will go and continue BiPAP, repeat blood gases if she makes it through that time and go from there. JOB# [id number]
--- NOTE | 2016-03-07 23:31 | Discharge Summary ---
PRELIMINARY DIAGNOSES: 1. Pneumonia. 2. Sepsis. 3. Urinary tract infection. 4. Decubitus ulcers bilaterally to the lower extremities. 5. G-tube feeding. 6. Senile dementia. 7. Seizure disorder. 8. Gastroesophageal reflux disease. 9. Hyperlipidemia. 10. Hypothyroidism. DISCHARGE DIAGNOSES: 1. Cardiopulmonary arrest. 2. Cardiac arrhythmia. 3. Pneumonia. 4. Sepsis. 5. Urinary tract infection. 6. Decubitus ulcers bilateral to the lower extremities. 7. G-tube feeding. 8. Senile dementia. 9. Seizure disorder. 10. Gastroesophageal reflux disease. 11. Hyperlipidemia. 12. Hypothyroidism. BRIEF HISTORY OF PRESENT ILLNESS: This is a 80-year-old female who is brought in by ambulance from [facility] to [facility] ER for increased shortness of breath and [facility] The patient has a previous history of pneumonia along with UTI. Also, she has a history of decubitus ulcers to both feet. She has a G-tube for feeding, history of dementia, seizure disorder, gastroesophageal reflux disease, hyperlipidemia, and hypothyroidism. The patient presented to the ER with initial lab work, CBC: White count was 6.3, hemoglobin 12.7, hematocrit 37.2, platelets 121,000. Her Chem-7: Sodium was noted to be low at 126, potassium 3.7, chloride 96, bicarbonate 22, BUN 95, and creatinine 1.4. Glucose was elevated at 428. Also, her liver enzymes were noted to be elevated. AST was 80. ALT 127, alk phos 79, and UA revealed yellow cloudy urine with moderate blood and a few yeast present. HOSPITAL COURSE: The patient was treated aggressively with IV antibiotics, IV vancomycin, and IV Zosyn. She had been seen and evaluated by Pulmonology Dr. Nandini Richardson as well as ID Dr. Aden Richardson. The patient was also seen by Nephrology due to severe hyponatremia and dehydration. The patient unfortunately and on 03/02/2016. JOB# [id number]
== END 2016-03-02 11:36 | disposition expired | DRG 871 ==
LOC: ER 12:00 → MSI 14:45
PROVIDERS: ADMIT Family Medicine; ATTEND Family Medicine
DX: A41.9 Sepsis, unspecified organism (principal); J18.9 Pneumonia, unspecified organism; N17.9 Acute kidney failure, unspecified; G93.41 Metabolic encephalopathy; J96.01 Acute respiratory failure with hypoxia; J96.02 Acute respiratory failure with hypercapnia; L89.623 Pressure ulcer of left heel, stage 3; E87.1 Hypo-osmolality and hyponatremia; E11.65 Type 2 diabetes mellitus with hyperglycemia; G30.9 Alzheimer's disease, unspecified; B37.49 Other urogenital candidiasis; J44.9 Chronic obstructive pulmonary disease, unspecified; G40.909 Epilepsy, unspecified, not intractable, without status epilepticus; K21.9 Gastro-esophageal reflux disease without esophagitis; E78.5 Hyperlipidemia, unspecified; E03.9 Hypothyroidism, unspecified; I10 Essential (primary) hypertension; I25.10 Atherosclerotic heart disease of native coronary artery without angina pectoris; J45.909 Unspecified asthma, uncomplicated; L89.899 Pressure ulcer of other site, unspecified stage; M19.90 Unspecified osteoarthritis, unspecified site; F02.80 Dementia in other diseases classified elsewhere, unspecified severity, without behavioral disturbance, psychotic disturbance, mood disturbance, and anxiety; Z93.1 Gastrostomy status; Z86.73 Personal history of transient ischemic attack (TIA), and cerebral infarction without residual deficits; R62.7 Adult failure to thrive; I46.9 Cardiac arrest, cause unspecified; Z66 Do not resuscitate
CPT/HCPCS: 36415-UA; 36600-90; 71010-TC; 80053-TC; 80061-TC; 81001-TC; 82140-TC; 82803-TC; 82948-90; 83036-90; 83605; 83735-TC; 84443-TC; 84484-TC; 85007-TC; 85027-TC; 85610-TC; 85730-TC; 86592-TC; 87070; 90799; 93005; 94640; 94660; 94760; 96375; J0456; J0696; J1644; J1815; J2543; J2930; J3370; J3480; J7030; J7042; J7613; Z7610